=== PATIENT | female | born 1990 | race Caucasian/White ===

== ENCOUNTER 2017-06-19 23:01 | Emergency (ER) | payer OTHER ==
[~2017-06-19] VITALS: Ht 124.4 cm; Wt 95.3 kg
[~2017-06-19 23:01] MED LIST: ALBUTEROL0.09 MG/A2 INH; ANAPROX DS550 MG PO; BENADRYL25 MG PO; BIAXIN500 MG PO; CLARITIN10 MG PO; CLINDAMYCIN HC300 MG PO; CLINDAMYCIN150 MG PO; EPI EZ PEN1 MG/ML IM; MACROBID100 M1 PO; MACRODANTIN100 MG PO; MEDROL DOSEPAK4 MG PO; MOTRIN800 MG PO; Motrin,Rufen800 MG PO; NO DAILY MEDS; PRENATAL1 TA3 PO; PRENATAL1 TA7 PO; PROVENTIL0.09 MG/AC IH; ZITHROMAX Z PA250 MG PO; ZITHROMAX250 MG PO; ZOFRAN ODT4 MG SL
[2017-06-19] MEDS ORDERED: ZITHROMAX250 MG PO (23:49)
[2017-06-19] MEDS ORDERED: [UNRECOGNIZED DRUG - REMARK] PO (23:49)
[2017-06-19] MEDS ORDERED: Motrin,Rufen800 MG PO (23:51)
== END 2017-06-20 01:20 | disposition home or self-care (01) ==
LOC: ED 23:01
DX: J01.90 Acute sinusitis, unspecified (principal); R63.0 Anorexia; R11.10 Vomiting, unspecified; J02.9 Acute pharyngitis, unspecified; R09.81 Nasal congestion; R42 Dizziness and giddiness; F17.200 Nicotine dependence, unspecified, uncomplicated; Z88.0 Allergy status to penicillin; Z88.1 Allergy status to other antibiotic agents

== ENCOUNTER 2017-08-18 21:21 | Emergency (ER) | payer OTHER ==
[~2017-08-18] VITALS: Ht 149.8 cm; Wt 92.5 kg
[~2017-08-18 21:21] MED LIST changes: +[UNRECOGNIZED DRUG - REMARK] PO
[2017-08-18 21:53] LABS: BILIRUBIN 1+ (NEGATIVE); BLOOD TRACE-INTACT (NEGATIVE); CLARITY SL CLOUDY (CLEAR); COLOR YELLOW (YELLOW); GLUCOSE NEGATIVE (NEGATIVE); KETONE NEGATIVE (NEGATIVE); LEUKO ESTERASE NEGATIVE (NEGATIVE); NITRITE NEGATIVE (NEGATIVE); PH 5.5 (5.0-9.0); SPECIFIC GRAVITY >= 1.030 (1.005-1.030)
[2017-08-18 22:00] LABS: BACTERIA 1+; MUCOUS TRACE; RBC 0-2 rbc/hpf (0-2)
[2017-08-18] MEDS ORDERED: Motrin,Rufen800 MG PO (23:30)
[2017-08-18] MEDS ORDERED: CYCLOBENZAPRINE5 M3 PO (23:30)
[2017-08-18] MEDS ORDERED: PREDNISONE20 M1 PO (23:30)
== END 2017-08-18 23:51 | disposition home or self-care (01) ==
LOC: ED 21:21
PROVIDERS: Emergency Medicine Emergency Medical Services
DX: S39.012A Strain of muscle, fascia and tendon of lower back, initial encounter (principal); F17.200 Nicotine dependence, unspecified, uncomplicated; Z79.899 Other long term (current) drug therapy; Z88.0 Allergy status to penicillin; Z88.1 Allergy status to other antibiotic agents; X50.9XXA Other and unspecified overexertion or strenuous movements or postures, initial encounter; Y93.89 Activity, other specified; Y92.89 Other specified places as the place of occurrence of the external cause; Y99.9 Unspecified external cause status

== ENCOUNTER 2017-09-17 11:47 | Emergency (ER) | payer OTHER ==
[~2017-09-17] VITALS: Ht 149.8 cm; Wt 93.0 kg
[~2017-09-17 11:47] MED LIST changes: +CYCLOBENZAPRINE5 M3 PO; +PREDNISONE20 M1 PO
[2017-09-17] MEDS ORDERED: BENADRYL25 M2 PO (12:57)
[2017-09-17] MEDS ORDERED: MEDROL DOSEPAK4 MG PO (12:57)
== END 2017-09-17 13:46 | disposition home or self-care (01) ==
LOC: ED 11:47
DX: R60.0 Localized edema (principal); T78.40XA Allergy, unspecified, initial encounter; F17.200 Nicotine dependence, unspecified, uncomplicated; Z79.899 Other long term (current) drug therapy; Z88.0 Allergy status to penicillin; Z88.1 Allergy status to other antibiotic agents; Y92.9 Unspecified place or not applicable

== ENCOUNTER 2018-01-08 16:00 | Emergency (ER) | payer OTHER ==
[~2018-01-08] VITALS: Wt 92.5 kg
[~2018-01-08 16:00] MED LIST changes: +BENADRYL25 M2 PO
[2018-01-08 16:48] LABS: BILIRUBIN NEGATIVE (NEGATIVE); BLOOD 3+ (NEGATIVE); CLARITY CLOUDY (CLEAR); COLOR YELLOW (YELLOW); GLUCOSE NEGATIVE (NEGATIVE); KETONE TRACE (NEGATIVE); LEUKO ESTERASE NEGATIVE (NEGATIVE); NITRITE NEGATIVE (NEGATIVE); PH 5.5 (5.0-9.0); SPECIFIC GRAVITY 1.025 (1.005-1.030); UROBILINOGEN 0.2 E.U./dl (0.2-1.0)
[2018-01-08 17:03] LABS: BACTERIA 1+; EPITHELIAL CELLS 35-40; RBC TNTC rbc/hpf (0-2); WBC 0-2 wbc/hpf (0-5)
[2018-01-08 17:14] LABS: BASO % 0.1 % (0.0-1.0); EOS # 0.2 10*3/uL (0.0-0.4); EOS % 1.6 % (1.0-4.0); HEMATOCRIT 40.2 % (37.0-47.0); HEMOGLOBIN 13.7 g/dl (12.0-16.0); LYMPH # 1.4 10*3/uL (1.3-4.4); LYMPH % 14.3 % (27.0-41.0); MEAN CORPUSCULAR HGB CONC 34.1 g/dl (33.0-37.0); MEAN PLATELET VOLUME 9.6 fl (9.6-12.3); MONO # 0.4 10*3/uL (0.1-1.0); NEUT % 79.6 % (47.0-73.0); PLATELET COUNT AUTOMATED 257 10*3/uL (130-400); RED BLOOD COUNT 4.57 10*6/uL (4.10-5.10); RED CELL DISTRI WIDTH 12.7 % (0-14.5); WHITE BLOOD COUNT 10.1 10*3/uL (4.8-10.8)
[2018-01-08 17:25] LABS: BUN 9 mg/dl (7-24); CHLORIDE 105 mmol/L (98-107); CREATININE 0.67 mg/dL (0.55-1.02); POTASSIUM 3.8 mmol/L (3.5-5.1); SODIUM 136 mmol/L (136-145)
== END 2018-01-08 17:57 | disposition home or self-care (01) ==
LOC: ED 16:00
PROVIDERS: Physician Assistant
DX: O46.91 Antepartum hemorrhage, unspecified, first trimester (principal); O99.331 Smoking (tobacco) complicating pregnancy, first trimester; F17.200 Nicotine dependence, unspecified, uncomplicated; Z3A.01 Less than 8 weeks gestation of pregnancy; Z88.0 Allergy status to penicillin; Z88.1 Allergy status to other antibiotic agents

== ENCOUNTER → 2018-01-09 | Outpatient (CLI) | payer OTHER | END | disposition home or self-care (01) | LOC: LAB 10:24 | DX: N91.2 Amenorrhea, unspecified (principal) ==

== ENCOUNTER 2018-03-14 19:32 | Emergency (ER) | payer OTHER ==
[~2018-03-14] VITALS: Ht 149.8 cm; Wt 98.4 kg
[2018-03-14] MEDS ORDERED: REGLAN10 M1 PO (20:05)
== END 2018-03-14 20:14 | disposition home or self-care (01) ==
LOC: ED 19:32
DX: O26.891 Other specified pregnancy related conditions, first trimester (principal); R11.0 Nausea; Z3A.01 Less than 8 weeks gestation of pregnancy

== ENCOUNTER → 2018-03-29 | Outpatient (CLI) | payer OTHER ==
[~2018-03-29] MED LIST changes: +REGLAN10 M1 PO
== END | disposition home or self-care (01) ==
LOC: US 15:00
DX: Z33.1 Pregnant state, incidental (principal)

== ENCOUNTER 2018-05-27 20:47 | Emergency (ER) | payer OTHER ==
[~2018-05-27] VITALS: Ht 124.4 cm; Wt 101.6 kg
[2018-05-27 21:12] LABS: BILIRUBIN NEGATIVE (NEGATIVE); BLOOD NEGATIVE (NEGATIVE); CLARITY SL CLOUDY (CLEAR); COLOR YELLOW (YELLOW); GLUCOSE NEGATIVE (NEGATIVE); KETONE NEGATIVE (NEGATIVE); LEUKO ESTERASE NEGATIVE (NEGATIVE); NITRITE NEGATIVE (NEGATIVE)
[2018-05-27 21:24] LABS: BACTERIA TRACE; EPITHELIAL CELLS 40-45; RBC 0-2 rbc/hpf (0-2); WBC 0-2 wbc/hpf (0-5)
[2018-05-27] MEDS ORDERED: MACROBID100 M1 PO (22:04)
== END 2018-05-27 22:15 | disposition home or self-care (01) ==
LOC: ED 20:47
PROVIDERS: Emergency Medicine Emergency Medical Services
DX: O23.12 Infections of bladder in pregnancy, second trimester (principal); R30.0 Dysuria; Z3A.15 15 weeks gestation of pregnancy; Z88.0 Allergy status to penicillin; Z88.1 Allergy status to other antibiotic agents

== ENCOUNTER → 2018-05-28 | Outpatient (CLI) | payer OTHER | END | disposition home or self-care (01) | LOC: US 14:05 | DX: O99.89 Other specified diseases and conditions complicating pregnancy, childbirth and the puerperium (principal); R10.2 Pelvic and perineal pain; Z3A.15 15 weeks gestation of pregnancy ==

== ENCOUNTER → 2018-07-02 | Outpatient (CLI) | payer OTHER | END | disposition home or self-care (01) | LOC: US 12:59 | DX: Z34.92 Encounter for supervision of normal pregnancy, unspecified, second trimester (principal); Z3A.18 18 weeks gestation of pregnancy ==

== ENCOUNTER → 2018-09-10 | Outpatient (CLI) | payer OTHER ==
[~2018-09-10] MED LIST changes: +AVPAK AZITHROM250 MG PO; +PROAIR HFA8.5 GM INH
== END | disposition home or self-care (01) ==
LOC: US 11:18
DX: O36.63X0 Maternal care for excessive fetal growth, third trimester, not applicable or unspecified (principal); Z3A.30 30 weeks gestation of pregnancy

== ENCOUNTER → 2018-09-24 | Outpatient (CLI) | payer OTHER | END | disposition home or self-care (01) | LOC: US 13:30 | DX: O44.23 Partial placenta previa NOS or without hemorrhage, third trimester (principal); Z3A.32 32 weeks gestation of pregnancy ==

== ENCOUNTER → 2019-06-17 | Day surgery (SDC) | payer OTHER ==
[2019-06-10 13:37] VITALS: BP 110/66
[2019-06-17] VITALS (7 sets, daily range): BP systolic 114–122; BP diastolic 56–72
[~2019-06-17] VITALS: Ht 149.8 cm; Wt 95.3 kg
[~2019-06-17] MED LIST changes: +NORCO 10-325 T1 EACH PO
== END | disposition home or self-care (01) ==
LOC: SDC 06-10 13:15
DX: Z30.2 Encounter for sterilization (principal); N83.8 Other noninflammatory disorders of ovary, fallopian tube and broad ligament; F41.9 Anxiety disorder, unspecified; G47.33 Obstructive sleep apnea (adult) (pediatric); K66.0 Peritoneal adhesions (postprocedural) (postinfection); E66.9 Obesity, unspecified; Z68.41 Body mass index [BMI] 40.0-44.9, adult; F17.210 Nicotine dependence, cigarettes, uncomplicated; Z98.890 Other specified postprocedural states; Z88.1 Allergy status to other antibiotic agents; Z83.3 Family history of diabetes mellitus; Z80.9 Family history of malignant neoplasm, unspecified; Z88.0 Allergy status to penicillin

== ENCOUNTER 2019-10-05 23:22 | Emergency (ER) | payer OTHER ==
[~2019-10-05] VITALS: Ht 149.8 cm; Wt 106.1 kg
[2019-10-06] MEDS ORDERED: PROAIR HFA8.5 GM INH (00:40)
[2019-10-06] MEDS ORDERED: PREDNISONE10 MG PO (00:40)
[2019-10-06] MEDS ORDERED: TESSALON PERLE100 M1 PO (00:41)
[2019-10-06] MEDS ORDERED: HYCODAN/HYDROMET5 ML PO (00:41)
== END 2019-10-06 00:58 | disposition home or self-care (01) ==
LOC: ED 23:22
DX: J40 Bronchitis, not specified as acute or chronic (principal); F17.200 Nicotine dependence, unspecified, uncomplicated; Z88.0 Allergy status to penicillin; Z88.1 Allergy status to other antibiotic agents

== ENCOUNTER 2019-12-07 21:16 | Emergency (ER) | payer SELFPAY ==
[~2019-12-07] VITALS: Ht 149.8 cm; Wt 106.6 kg
[~2019-12-07 21:16] MED LIST changes: +HYCODAN/HYDROMET5 ML PO; +PREDNISONE10 MG PO; +TESSALON PERLE100 M1 PO
[2019-12-07 22:27] LABS: BILIRUBIN NEGATIVE (NEGATIVE); BLOOD NEGATIVE (NEGATIVE); CLARITY SL CLOUDY (CLEAR); COLOR YELLOW (YELLOW); GLUCOSE NEGATIVE (NEGATIVE); KETONE NEGATIVE (NEGATIVE); LEUKO ESTERASE NEGATIVE (NEGATIVE); NITRITE NEGATIVE (NEGATIVE); SPECIFIC GRAVITY 1.025 (1.005-1.030)
[2019-12-07 23:17] LABS: EPITHELIAL CELLS 20-25
[2019-12-07 23:18] LABS: BACTERIA 1+; WBC 0-2 wbc/hpf (0-5)
[2019-12-07] MEDS ORDERED: CYCLOBENZAPRINE10 MG PO (23:23)
[2019-12-07] MEDS ORDERED: IBU800 MG PO (23:23)
== END 2019-12-08 03:58 | disposition home or self-care (01) ==
LOC: ED 21:16
PROVIDERS: Nurse Practitioner Family
DX: M54.5 Low back pain (principal); F17.200 Nicotine dependence, unspecified, uncomplicated; Z88.0 Allergy status to penicillin; Z88.1 Allergy status to other antibiotic agents

== ENCOUNTER 2020-11-03 17:37 | Emergency (ER) | payer OTHER ==
[~2020-11-03] VITALS: Wt 113.9 kg
[~2020-11-03 17:37] MED LIST changes: +CYCLOBENZAPRINE10 MG PO; +IBU800 MG PO
[2020-11-03] MEDS ORDERED: CYCLOBENZAPRINE5 M3 PO (18:17)
== END 2020-11-03 18:20 | disposition home or self-care (01) ==
LOC: ED 17:37
DX: S29.011A Strain of muscle and tendon of front wall of thorax, initial encounter (principal); Z88.0 Allergy status to penicillin; Z88.8 Allergy status to other drugs, medicaments and biological substances; Z79.899 Other long term (current) drug therapy; X58.XXXA Exposure to other specified factors, initial encounter; Y93.89 Activity, other specified; Y92.89 Other specified places as the place of occurrence of the external cause; Y99.8 Other external cause status

== ENCOUNTER 2021-05-02 11:45 | Emergency (ER) | payer OTHER ==
[~2021-05-02] VITALS: Wt 116.1 kg
[2021-05-02 12:41] LABS: BILIRUBIN Negative (Negative); BLOOD Negative (Negative); CLARITY Cloudy (Clear); COLOR Dark Yellow (Yellow); GLUCOSE Negative (Negative); KETONE Trace (Negative); LEUKO ESTERASE 1+ (Negative); NITRITE Negative (Negative); SPECIFIC GRAVITY >= 1.030 (1.001-1.030)
[2021-05-02 12:48] LABS: BACTERIA 2+; MUCOUS 1+
[2021-05-02 12:48] LABS: BASO % 0.3 % (0.0-1.0); EOS # 0.2 10*3/uL (0.0-0.4); EOS % 1.9 % (1.0-4.0); HEMATOCRIT 43.5 % (37.0-47.0); LYMPH # 1.9 10*3/uL (1.3-4.4); LYMPH % 21.1 % (27.0-41.0); MEAN CELL VOLUME 88.4 fl (81.0-99.0); MEAN CORPUSCULAR HGB 28.7 pg (27.0-31.0); MEAN CORPUSCULAR HGB CONC 32.4 g/dl (33.0-37.0); MEAN PLATELET VOLUME 10.1 fl (9.6-12.3); MONO # 0.5 10*3/uL (0.1-1.0); MONO % 5.4 % (3.0-9.0); NEUT # 6.5 10*3/uL (2.3-7.9); NEUT % 70.9 % (47.0-73.0); PLATELET COUNT AUTOMATED 282 10*3/uL (130-400); RED BLOOD COUNT 4.92 10*6/uL (4.10-5.10); RED CELL DISTRI WIDTH 13.5 % (0-14.5); WHITE BLOOD COUNT 9.1 10*3/uL (4.8-10.8)
[2021-05-02 13:03] LABS: ALBUMIN 3.4 gm/dl (3.1-4.5); ALKALINE PHOSPHATASE 127 U/L (45-117); BUN 9 mg/dl (7-24); CHLORIDE 111 mmol/L (98-107); CREATININE 0.87 mg/dL (0.55-1.02); POTASSIUM 3.6 mmol/L (3.5-5.1); SGOT/AST 13 IU/L (3-35); SGPT/ALT 24 U/L (12-78); SODIUM 138 mmol/L (136-145); TOTAL PROTEIN 7.7 gm/dL (6.4-8.2)
[2021-05-02 13:05] LABS: B-hCG (QUALITATIVE) NEGATIVE (NEGATIVE)
== END 2021-05-02 13:36 | disposition home or self-care (01) ==
LOC: ED 11:45
PROVIDERS: Physician Assistant
DX: R42 Dizziness and giddiness (principal); Z88.0 Allergy status to penicillin; Z88.8 Allergy status to other drugs, medicaments and biological substances; Z79.899 Other long term (current) drug therapy

== ENCOUNTER 2021-07-02 13:04 | Emergency (ER) | payer OTHER ==
[2021-07-02] MEDS ORDERED: TYLENOL325 M1 PO (15:01)
[2021-07-02] MEDS ORDERED: CYCLOBENZAPRINE10 MG PO (15:01)
[2021-07-02] MEDS ORDERED: NAPROXEN250 MG PO (15:01)
[2021-07-02 15:38] LABS: BILIRUBIN Negative (Negative); BLOOD 3+ (Negative); CLARITY Cloudy (Clear); COLOR Yellow (Yellow); GLUCOSE Negative (Negative); KETONE Negative (Negative); LEUKO ESTERASE Negative (Negative); NITRITE Negative (Negative); PH 5.5 (4.5-8.0); SPECIFIC GRAVITY >= 1.030 (1.001-1.030)
[2021-07-02 15:51] LABS: BACTERIA 2+; MUCOUS 2+
== END 2021-07-02 15:16 | disposition home or self-care (01) ==
LOC: ED 13:04
PROVIDERS: Emergency Medicine
DX: M54.5 Low back pain (principal); R09.81 Nasal congestion; R51.9 Headache, unspecified; E66.9 Obesity, unspecified; F17.200 Nicotine dependence, unspecified, uncomplicated; Z87.442 Personal history of urinary calculi; Z88.0 Allergy status to penicillin; Z88.1 Allergy status to other antibiotic agents; Z79.899 Other long term (current) drug therapy

== ENCOUNTER 2022-06-25 08:13 | Emergency (ER) | payer OTHER ==
[~2022-06-25] VITALS: Ht 149.8 cm; Wt 99.8 kg
[~2022-06-25 08:13] MED LIST changes: +NAPROXEN250 MG PO; +TYLENOL325 M1 PO
[2022-06-25] MEDS ORDERED: KENALOG 0.1%80 GM T (08:38)
== END 2022-06-25 08:46 | disposition home or self-care (01) ==
LOC: ED 08:13
DX: L23.7 Allergic contact dermatitis due to plants, except food (principal); Z88.0 Allergy status to penicillin; Z88.1 Allergy status to other antibiotic agents

== ENCOUNTER 2023-11-09 14:22 | Emergency (ER) | payer OTHER ==
[~2023-11-09] VITALS: Ht 149.8 cm; Wt 106.6 kg
[~2023-11-09 14:22] MED LIST changes: +KENALOG 0.1%80 GM T
[2023-11-09] MEDS ORDERED: PREDNISONE50 MG PO ×2 (23:58)
[2023-11-09] MEDS ORDERED: OMNICEF300 MG PO ×2 (23:58)
== END 2023-11-09 17:00 | disposition left against medical advice (07) ==
LOC: ED 14:22
DX: R05.9 Cough, unspecified (principal); R07.89 Other chest pain; Z88.0 Allergy status to penicillin; Z88.1 Allergy status to other antibiotic agents; Z53.21 Procedure and treatment not carried out due to patient leaving prior to being seen by health care provider

== ENCOUNTER 2023-11-09 23:46 | Emergency (ER) | payer OTHER ==
[2023-11-09] MEDS ORDERED: PREDNISONE50 MG PO ×2 (23:58)
[2023-11-09] MEDS ORDERED: OMNICEF300 MG PO ×2 (23:58)
== END 2023-11-10 00:02 | disposition home or self-care (01) ==
LOC: ED 23:46
DX: J40 Bronchitis, not specified as acute or chronic (principal); R07.89 Other chest pain; Z88.0 Allergy status to penicillin; Z88.1 Allergy status to other antibiotic agents; Z98.890 Other specified postprocedural states

== ENCOUNTER 2023-11-16 20:17 | Emergency (ER) | payer OTHER ==
[~2023-11-16] VITALS: Ht 149.8 cm; Wt 104.3 kg
[~2023-11-16 20:17] MED LIST changes: +OMNICEF300 MG PO; +PREDNISONE50 MG PO
[2023-11-16] MEDS ORDERED: PREDNISONE20 M1 PO (22:23)
== END 2023-11-16 22:34 | disposition home or self-care (01) ==
LOC: ED 20:17
DX: J20.8 Acute bronchitis due to other specified organisms (principal); M54.9 Dorsalgia, unspecified; Z88.0 Allergy status to penicillin; Z88.1 Allergy status to other antibiotic agents; Z88.6 Allergy status to analgesic agent; Z98.890 Other specified postprocedural states; Z20.822 Contact with and (suspected) exposure to COVID-19

== ENCOUNTER 2024-05-08 12:00 | Emergency (ER) | payer OTHER ==
[~2024-05-08] VITALS: Ht 149.8 cm; Wt 97.5 kg
== END 2024-05-08 12:46 | disposition home or self-care (01) ==
LOC: ED 12:00
DX: Z77.098 Contact with and (suspected) exposure to other hazardous, chiefly nonmedicinal, chemicals (principal); J02.9 Acute pharyngitis, unspecified; R51.9 Headache, unspecified; Z88.0 Allergy status to penicillin; Z88.1 Allergy status to other antibiotic agents; Z88.6 Allergy status to analgesic agent; Z98.890 Other specified postprocedural states

== ENCOUNTER 2024-06-26 10:44 | Emergency (ER) | payer OTHER ==
[~2024-06-26] VITALS: Ht 149.8 cm; Wt 98.9 kg
[2024-06-26] MEDS ORDERED: MEDROL DOSEPAK4 MG PO (13:25)
== END 2024-06-26 13:30 | disposition home or self-care (01) ==
LOC: ED 10:44
DX: J45.909 Unspecified asthma, uncomplicated (principal); Z88.0 Allergy status to penicillin; Z88.1 Allergy status to other antibiotic agents; Z88.6 Allergy status to analgesic agent; Z98.890 Other specified postprocedural states

== ENCOUNTER 2024-08-21 10:47 | Emergency (ER) | payer OTHER ==
[~2024-08-21] VITALS: Ht 149.8 cm; Wt 99.8 kg
[2024-08-21] MEDS ORDERED: Ketorolac Tromethamine 30 MG/ML VIAL IM ONE (11:00)
[2024-08-21] MEDS ORDERED: methylPREDNISolone acetate 40 MG/ML VIAL IM ONE (11:00)
[2024-08-21] MEDS ORDERED: ZANAFLEX4 MG PO (12:28)
[2024-08-21] MEDS ORDERED: MEDROL DOSEPAK4 MG PO (12:28)
[2024-08-21] MEDS ORDERED: NAPROSYN500 MG PO (12:28)
== END 2024-08-21 12:49 | disposition home or self-care (01) ==
LOC: ED 10:47
DX: S46.911A Strain of unspecified muscle, fascia and tendon at shoulder and upper arm level, right arm, initial encounter (principal); Z88.0 Allergy status to penicillin; Z88.1 Allergy status to other antibiotic agents; Z88.6 Allergy status to analgesic agent; Z98.890 Other specified postprocedural states; X58.XXXA Exposure to other specified factors, initial encounter; Y93.89 Activity, other specified; Y92.89 Other specified places as the place of occurrence of the external cause; Y99.8 Other external cause status

== ENCOUNTER 2024-10-19 19:57 | Emergency (ER) | payer OTHER ==
[~2024-10-19] VITALS: Wt 99.8 kg
[~2024-10-19 19:57] MED LIST changes: +NAPROSYN500 MG PO; +ZANAFLEX4 MG PO
[2024-10-19] MEDS ORDERED: Ondansetron Hydrochloride 4 MG TAB PO ONE (20:20)
[2024-10-19 20:45] LABS: BASO % 0.3 % (0.0-1.0); EOS # 0.3 10*3/uL (0.0-0.4); EOS % 3.8 % (1.0-4.0); MEAN CELL VOLUME 94.5 fl (81.0-99.0); MEAN CORPUSCULAR HGB 30.4 pg (27.0-31.0); MEAN CORPUSCULAR HGB CONC 32.2 g/dl (33.0-37.0); MONO # 0.4 10*3/uL (0.1-1.0); NEUT # 4.8 10*3/uL (2.3-7.9); PLATELET COUNT AUTOMATED 227 10*3/uL (130-400); RED BLOOD COUNT 4.34 10*6/uL (4.10-5.10); RED CELL DISTRI WIDTH 12.6 % (0-14.5); WHITE BLOOD COUNT 7.3 10*3/uL (4.8-10.8)
[2024-10-19 21:01] LABS: ALKALINE PHOSPHATASE 112 U/L (46-116); BUN 9 mg/dl (9-23); CHLORIDE 107 mmol/L (98-107); LIPASE 32 U/L (12-53); POTASSIUM 3.9 mmol/L (3.4-5.1); SGPT/ALT 13 U/L (5-49); TOTAL PROTEIN 6.9 gm/dL (6.0-8.0)
[2024-10-19 21:06] LABS: BILIRUBIN Negative (Negative); BLOOD Negative (Negative); CLARITY Clear (Clear); COLOR Yellow (Yellow); GLUCOSE Negative (Negative); KETONE Negative (Negative); LEUKO ESTERASE Negative (Negative); NITRITE Negative (Negative); SPECIFIC GRAVITY 1.025 (1.001-1.030)
[2024-10-19 21:10] LABS: PH >= 9.0 (4.5-8.0)
[2024-10-19 21:19] LABS: MUCOUS 2+
[2024-10-19 21:20] LABS: RBC 0-2 rbc/hpf (0-2); WBC 0-2 wbc/hpf (0-5)
[2024-10-19] MEDS ORDERED: Ondansetron4 MG PO (21:41)
== END 2024-10-19 21:58 | disposition home or self-care (01) ==
LOC: ED 19:57
PROVIDERS: Physician Assistant Medical
DX: K52.9 Noninfective gastroenteritis and colitis, unspecified (principal); R11.2 Nausea with vomiting, unspecified; Z88.0 Allergy status to penicillin; Z88.1 Allergy status to other antibiotic agents

== ENCOUNTER 2024-11-06 00:09 | Emergency (ER) | payer OTHER ==
[~2024-11-06] VITALS: Ht 149.8 cm; Wt 103.9 kg
[~2024-11-06 00:09] MED LIST changes: +Ondansetron4 MG PO
[2024-11-06 00:56] LABS: BASO % 0.3 % (0.0-1.0); EOS # 0.3 10*3/uL (0.0-0.4); EOS % 3.4 % (1.0-4.0); HEMATOCRIT 39.9 % (37.0-47.0); MEAN CELL VOLUME 93.2 fl (81.0-99.0); MEAN CORPUSCULAR HGB 30.1 pg (27.0-31.0); MEAN CORPUSCULAR HGB CONC 32.3 g/dl (33.0-37.0); MEAN PLATELET VOLUME 9.9 fl (9.6-12.3); MONO # 0.4 10*3/uL (0.1-1.0); MONO % 4.5 % (3.0-9.0); NEUT % 61.5 % (47.0-73.0); PLATELET COUNT AUTOMATED 280 10*3/uL (130-400); RED BLOOD COUNT 4.28 10*6/uL (4.10-5.10); RED CELL DISTRI WIDTH 12.6 % (0-14.5); WHITE BLOOD COUNT 9.7 10*3/uL (4.8-10.8)
== END 2024-11-06 01:28 | disposition home or self-care (01) ==
LOC: ED 00:09
PROVIDERS: Internal Medicine
DX: B34.9 Viral infection, unspecified (principal); Z20.822 Contact with and (suspected) exposure to COVID-19; Z88.0 Allergy status to penicillin; Z88.1 Allergy status to other antibiotic agents; Z88.6 Allergy status to analgesic agent

== ENCOUNTER 2024-11-21 02:21 | Emergency (ER) | payer OTHER ==
[~2024-11-21] VITALS: Ht 149.8 cm; Wt 102.5 kg
[2024-11-21] MEDS ORDERED: Sulfamethoxazole/Trimethopri 1 TAB TAB PO ONE (02:40)
[2024-11-21] MEDS ORDERED: Ondansetron Hydrochloride 4 MG TAB SL ONE (02:40)
[2024-11-21] MEDS ORDERED: Acetaminophen/Hydrocodone 5 MG/325 MG TABLET PO ONE (02:40)
[2024-11-21] MEDS ORDERED: SEPTDS PO (02:47)
== END 2024-11-21 02:53 | disposition home or self-care (01) ==
LOC: ED 02:21
DX: L02.415 Cutaneous abscess of right lower limb (principal); Z88.0 Allergy status to penicillin; Z88.1 Allergy status to other antibiotic agents; Z88.6 Allergy status to analgesic agent; Z98.890 Other specified postprocedural states

== ENCOUNTER 2024-12-11 00:36 | Emergency (ER) | payer OTHER ==
[~2024-12-11] VITALS: Ht 157.4 cm; Wt 88.5 kg
[~2024-12-11 00:36] MED LIST changes: +SEPTDS PO
[2024-12-11] MEDS ORDERED: METHOCARBAMOL 500 MG TAB PO ONE (02:15)
[2024-12-11] MEDS ORDERED: Ketorolac Tromethamine 60 MG/2 ML VIAL IM ONE (02:15)
[2024-12-11] MEDS ORDERED: NAPROXEN250 MG PO (02:18)
[2024-12-11] MEDS ORDERED: METHOCARBAMOL750 M1 PO (02:18)
== END 2024-12-11 02:30 | disposition home or self-care (01) ==
LOC: ED 00:36
DX: S39.011A Strain of muscle, fascia and tendon of abdomen, initial encounter (principal); E66.9 Obesity, unspecified; Z88.0 Allergy status to penicillin; Z88.1 Allergy status to other antibiotic agents; Z68.30 Body mass index [BMI] 30.0-30.9, adult; X58.XXXA Exposure to other specified factors, initial encounter; Y93.89 Activity, other specified; Y92.89 Other specified places as the place of occurrence of the external cause; Y99.8 Other external cause status

== ENCOUNTER 2025-01-05 16:50 | Emergency (ER) | payer OTHER ==
[~2025-01-05] VITALS: Ht 149.8 cm; Wt 104.3 kg
[~2025-01-05 16:50] MED LIST changes: +METHOCARBAMOL750 M1 PO
[2025-01-05] MEDS ORDERED: diphenhydrAMINE HCL;LIDO HCL 1 OZ OZ PO ONE (17:50)
== END 2025-01-05 18:22 | disposition home or self-care (01) ==
LOC: ED 16:50
DX: K12.0 Recurrent oral aphthae (principal); Z88.0 Allergy status to penicillin; Z88.1 Allergy status to other antibiotic agents; Z88.6 Allergy status to analgesic agent

== ENCOUNTER 2025-03-05 22:36 | Emergency (ER) | payer OTHER ==
[~2025-03-05] VITALS: Ht 149.8 cm; Wt 104.3 kg
[2025-03-05 23:13] LABS: BASO % 0.3 % (0.0-1.0); EOS # 0.2 10*3/uL (0.0-0.4); EOS % 1.7 % (1.0-4.0); MEAN CELL VOLUME 90.5 fl (81.0-99.0); MEAN CORPUSCULAR HGB CONC 32.1 g/dl (33.0-37.0); MEAN PLATELET VOLUME 9.9 fl (9.6-12.3); MONO # 0.8 10*3/uL (0.1-1.0); MONO % 6.3 % (3.0-9.0); NEUT # 9.9 10*3/uL (2.3-7.9); NEUT % 78.6 % (47.0-73.0); PLATELET COUNT AUTOMATED 248 10*3/uL (130-400); RED BLOOD COUNT 4.31 10*6/uL (4.10-5.10); RED CELL DISTRI WIDTH 12.4 % (0-14.5); WHITE BLOOD COUNT 12.6 10*3/uL (4.8-10.8)
[2025-03-06] MEDS ORDERED: CLINDAMYCIN HC300 MG PO (00:44)
[2025-03-06] MEDS ORDERED: CLINDAMYCIN HCL 300 MG CAPSULE PO ONE (00:45)
== END 2025-03-06 00:58 | disposition home or self-care (01) ==
LOC: ED 22:36
PROVIDERS: Internal Medicine
DX: J02.0 Streptococcal pharyngitis (principal); Z20.822 Contact with and (suspected) exposure to COVID-19; Z88.0 Allergy status to penicillin; Z88.1 Allergy status to other antibiotic agents

== ENCOUNTER 2025-07-18 15:25 | Emergency (ER) | payer OTHER ==
[~2025-07-18] VITALS: Ht 149.8 cm; Wt 111.1 kg
[2025-07-18] MEDS ORDERED: Metoclopramide Hydrochloride 10 MG/2 ML VIAL IV ONE (16:40)
[2025-07-18] MEDS ORDERED: Ondansetron Hydrochloride 4 MG/2 ML VIAL IV ONE (16:40)
[2025-07-18] MEDS ORDERED: diphenhydrAMINE hydrochloride 50 MG/ML VIAL IV ONE (16:40)
[2025-07-18] MEDS ORDERED: Ondansetron4 MG PO (17:25)
[2025-07-18] MEDS ORDERED: BUTALB-ACETAMI1 EACH PO (17:25)
== END 2025-07-18 17:35 | disposition home or self-care (01) ==
LOC: ED 15:25
DX: G43.909 Migraine, unspecified, not intractable, without status migrainosus (principal); J06.9 Acute upper respiratory infection, unspecified; Z88.0 Allergy status to penicillin; Z88.1 Allergy status to other antibiotic agents; Z88.8 Allergy status to other drugs, medicaments and biological substances

== ENCOUNTER 2025-08-31 16:49 | Emergency (ER) | payer OTHER ==
[~2025-08-31] VITALS: Ht 149.8 cm; Wt 108.9 kg
[~2025-08-31 16:49] MED LIST changes: +BUTALB-ACETAMI1 EACH PO
[2025-08-31] MEDS ORDERED: VIBRAMYCIN100 MG PO (18:16)
== END 2025-08-31 18:17 | disposition home or self-care (01) ==
LOC: ED 16:49
DX: S61.252A Open bite of right middle finger without damage to nail, initial encounter (principal); Z88.0 Allergy status to penicillin; Z88.1 Allergy status to other antibiotic agents; Z88.8 Allergy status to other drugs, medicaments and biological substances; W54.0XXA Bitten by dog, initial encounter; Y93.89 Activity, other specified; Y92.89 Other specified places as the place of occurrence of the external cause; Y99.8 Other external cause status